=== PATIENT | female | born 1975 | race Caucasian/White ===

== ENCOUNTER 2018-03-21 18:59 | Emergency (ER) | payer SELFPAY ==
[~2018-03-21] VITALS: Ht 165.1 cm; Wt 85.0 kg
[2018-03-21] MEDS ORDERED: SODIUM CHLORIDE 0.9% 1,000 ML IV ONE (19:39)
[2018-03-21] MEDS ORDERED: FLUORESCEIN SODIUM 1MG/STRIP BOTHEYE ONE (19:45)
[2018-03-21] MEDS ORDERED: ACETAMINOPHEN WITH CODEINE 300/30MG TABLET PO ONE (20:45)
[2018-03-21 23:01] VITALS: BP 131/81
== END 2018-03-21 23:05 | disposition home or self-care (01) ==
LOC: ER 20:00
DX: Z77.098 Contact with and (suspected) exposure to other hazardous, chiefly nonmedicinal, chemicals (principal)
CPT/HCPCS: 99284; J7030; J7040; Z7610